=== PATIENT | male | born 1965 | race Caucasian/White ===

== ENCOUNTER 2022-07-30 09:00 | Outpatient (CLI) | payer OTHER, SELFPAY | END 2022-07-30 09:01 | disposition home or self-care (01) | PROVIDERS: PCP Family Medicine; Visit Provider Family Medicine | DX: Z00.00 Encounter for general adult medical examination without abnormal findings (principal); E78.5 Hyperlipidemia, unspecified; Z12.5 Encounter for screening for malignant neoplasm of prostate | CPT/HCPCS: 80048; 80061; 84153 ==

== ENCOUNTER 2022-12-21 07:51 | Outpatient (CLI) | payer OTHER, SELFPAY ==
--- OUTSIDE RECORDS SUMMARY | 2022-12-21 07:55 | XMS_ITS | Continuity of Care Document ---
Author Name Unknown Organization Z [facility] Address [address] [place] [address] Phone Care Team Providers Care Splitter Hand Name Role Phone Unavailable Unavailable Unavailable Advance Directives Directive Yes / No Effective Date File Name No Information Encounters Encounter Description Practice Location Reason(s) For Visit Diagnoses Date Provider Providers Copied on Encounter Z [facility] [place], [address], [place], [address], [place] tel:[phone] [facility] No Information 0 2200 1 No Information Family History Family Member Type Diagnosis Age At Onset No Information Payers Payer name Insurance type Covered constitution party ID Authoriza tion(s) No Information Social History Type Description Quantity Date Captured Comments Sex Male Smoking Status No Information Chief Complaint And Reason For Visit No Information Reason For Referral Reason For Referral No Information History Of Present Illness Encounter Date Complaint History Of Prese nt Illness No Information Functional Status Date Functional Assessmen t No Information Instructions Date Instruction Additional Infor mation No Information Assessments Type Assessment Date No Information Patient Care Teams Name Effective Dates (start - stop) Status Members No Information
--- NOTE | 2022-12-21 08:00 | CRLHL7_ITS ---
For Patients: As a result of the Century Cures Act, medical imaging exams and procedure reports are released immediately into your electronic medical record. You may view this report before your referring provider. If you have questions, please contact your health care provider. Indication: RUQ pain x a couple of months, feels a bit better recently - worse when lifting weights Technique: Noncontrast CT abdomen and pelvis Please note that all CT scans at this facility use dose modulation, iterative reconstruction, and/or weight-based dosing when appropriate to reduce radiation dose to as low as reasonably achievable. Comparison: X-ray 07/19/2017 Findings: The lung bases are clear. No pleural effusion or infiltrate. No free intraperitoneal air. The noncontrast enhanced liver is normal. The gallbladder is partially distended. No biliary obstruction or calcified stones. The pancreas and spleen are normal. Normal adrenal glands and kidneys. Atherosclerotic changes in the aorta without aneurysm. No hiatal hernia. Hyperdense material incidentally noted within the stomach. The prostate is prominent with mass effect upon the inferior bladder wall. No bladder stone. Postop changes right hemicolectomy. No bowel obstruction. No free fluid. No intra-abdominal or intrapelvic adenopathy. A left inguinal hernia is present containing fat measuring 1.4 cm. Degenerative facet arthropathy noted within the lower lumbar spine. Degenerative disc disease L5-S1. No suspicious osseous lesion. No fracture. Hypertrophic changes at the symphysis pubis. Mild leftward curvature lumbar spine. Impression: Postop changes of right hemicolectomy. No bowel obstruction or inflammatory change. No adenopathy. Enlargement of the prostate superiorly with mass effect upon the bladder. No bladder stones or hydronephrosis. 1.4 cm left inguinal hernia containing fat. Please note that all CT scans at this facility use dose modulation, iterative reconstruction, and/or weight-based dosing when appropriate to reduce radiation dose to as low as reasonably achievable. Dictated by Andrea Paul MD @ 12/21/2022 11:15:50 AM (Electronically Signed)
== END 2022-12-21 07:52 | disposition home or self-care (01) ==
LOC: CT 07:52
PROVIDERS: PCP Family Medicine; Visit Provider Surgery
DX: R10.11 Right upper quadrant pain (principal); N40.0 Benign prostatic hyperplasia without lower urinary tract symptoms; K40.90 Unilateral inguinal hernia, without obstruction or gangrene, not specified as recurrent
CPT/HCPCS: 74176

== ENCOUNTER 2023-10-28 14:00 | Outpatient (CLI) | payer OTHER, SELFPAY ==
--- OUTSIDE RECORDS SUMMARY | 2023-10-28 14:03 | XMS_ITS | Clinical Summary ---
Author Organization [facility] Address [address] [place] [address] Care Team Providers Care Welding Machine Operator Gas Metal Arc Name Role Phone Pcp, Pt Declines Primary Care Provider [phone] Source Comments You are receiving this document as you are listed as the primary care provider,follow-up provider, or the patient has been referred to you for consultation.This is in compliance with the Medicare and[facility] EHR Incentive Program,which states Providers who transition their patient to another setting of careor provider of care or refers their patient to another provider of care shouldprovide summary care record for each transition of care or referral. [facility] Allergies No known active allergies Medications No known medications Social History Tobacco Use Types Packs/Day Years Used Date Smoking Tobacco: Never Assessed Sex and Gender Information Value Date Recorded Sex Assigned at Not on file Gender Identity Not on file Sexual Orientation Not on file Plan of Treatment Health Maintenance Due Date Last Done Comments Colon Cancer Screening Plan Due 1966 Hep C Screening (Preventive Services) 1966 PSA Screening Discussion 1966 HIV Screening (Preventive Services) 1982 Adult Preventive Visit 1984 DTaP/Tdap/Td (1 - Tdap) 1985 HepB (1) 1985 Cholesterol 2001 Zoster/Shingles (1 of 2) 2016 COVID-19 Vaccine ( - 2022-2 4 season) 2023 Influenza (Season Ended) 2024 HepA Aged Out No longer eligi ble based on patient's age to complete this topic Hib Aged Out No longer eligi ble based on patient's age to complete this topic IPV (Polio) Aged Out No longer eligi ble based on patient's age to complete this topic MCV4 Aged Out No longer eligi ble based on patient's age to complete this topic Pneumococcal Aged Out No longer eligi ble based on patient's age to complete this topic Care Teams Welding Machine Operator Gas Metal Arc Relationship Specialty Start Date End Date Pcp, Pt MD Cynthia [place], [place] [id number] PCP - General 09/30/20
--- OUTSIDE RECORDS SUMMARY | 2023-10-28 14:03 | XMS_ITS | Clinical Summary ---
Author Organization [facility] Address [place], [place] [address] Care Team Providers Care Professor Of Counseling Name Role Phone Jerardo Wagoner MD Primary Care Provider + Allergies No known active allergies Medications Medication Sig Dispensed Refills Start Date End Date Status MULTIVITAMIN ORAL 1 tab daily 0 0 03/29/[address] Walters Vital Reds and Vital Greens 0 04/26/2018 Active cholecalciferol (VITAMIN D3) 1,000 unit capsule Take 2 capsules by mouth once daily. 04/26/2018 Active krill oil 500 mg cap Take 1,000 mg by mouth. 0 04/26/2018 Active Active Problems Problem Noted Date Diagnosed Date H/O right hemicolectomy 04/26/2018 Overview: Right hemicolectomy for endoscopically unresectable polyp in May 2017. Family history of cerebrovascular accident (CVA) 04/26/2018 Overview: Father in his 60's, coronary bypass in 70's. EBCT scan age 50, score 0, 47th percentile Vitamin D deficiency 03/02/2013 Elevated cholesterol 03/02/2013 Immunizations Name Administration Dates Next Due Td (Age >=7 Years) 05/30/2004 Tdap 03/02/2013 Family History Medical History Relation Name Comments Other Brother 1 4 one has HTN Cancer Brother 2 Heart Disease Father 84 alive and h as CAD, caroid art Other Maternal Grandfather 80s mi Other Maternal Grandmother 90s oa Cancer Mother 83 HTN, lung ca ncer Other Paternal Grandfather 80s oa Other Paternal Grandmother 80s oa Other Sister Relation Name Status Comments Brother 1 Brother 2 Father Maternal Grandfather Maternal Grandmother Mother Paternal Grandfather Paternal Grandmother Sister Social History Tobacco Use Types Packs/Day Years Used Date Smoking Tobacco: Never Smokeless Tobacco: Never Tobacco Cessation:Counseling Given: Yes Alcohol Use Standard Drinks/Week Comments Yes 4 (1 standard drink = 0.6 oz pur e alcohol) PHQ-2 Answer Date Recorded PHQ-2 Score 0 06/13/2019 Social Connections Answer Date Recorded Frequency of Communication with Friends and Fami ly Not on file 05/30/2021 Financial Resource Strain Answer Date R ecorded Difficulty of Paying Living Expenses Not on file 05/30/2021 Difficulty of Paying Living Expenses Not on file 05/30/2021 Sex and Gender Information Value Date Recorded Sex Assigned at Not on file Gender Identity Not on file Sexual Orientation Not on file Obstetrics History Last Filed Vital Signs Vital Sign Reading Time Taken Comments Blood Pressure 121/76 03/04/2021 7:55 AM CDT Pulse 67 03/04/2021 7:55 AM CDT Temperature 37.1 ??C (98.7 ??F) 05/20/2016 10:[address] Respiratory Rate 16 07/11/2017 11:22 AM ASSOCIATE [facility]AN Oxygen Saturation 100% 03/04/2021 7:55 AM CDT Inhaled Oxygen Concentration - - Weight 82.7 kg (182 lb 6.4 oz) 03/04/2021 7:55 A M CDT Height 177 cm (5' 9.69) 06/13/2019 9:39 AM ASSOCIATE DEAN Body Mass Index 26.41 06/13/2019 9:39 AM ASSOCIATE DEAN Plan of Treatment Health Maintenance Due Date Last Done Comments HIV for age 15-65 1981 Hepatitis C screening for age 18-79 1984 Zoster (shingles) series for age 50+ (1 of 2) 2016 BMI (ht and wt on same day) for age 18+ 06/13/2020 06/13/2019, 04/26/2018, 07/11/2017, Additional history exists Depression screening for age 12+ 06/13/2020 06/13/2019, 04/26/2018, 01/17/2017, Additional history exists Colonoscopy through age 75 02/02/2021 02/02/2018, COVID-19 vaccine series ( season) 2023 02/10/2021 Tetanus booster 03/02/2023 03/02/2013, 05/30/2004 Influenza for age 50-64 01/29/2024 02/28/20 16 (Completed outside of [facility]) Lipids for age 45-75 06/13/2024 06/13/2019, 04/26/2018, 09/15/2015, Additional history exists Tdap Completed 03/02/2013 Pneumococcal series for age 6-64 Aged Out No longer eligible based on patient's age to complete this topic Procedures Procedure Name Priority Date/Time Associated Diagnosis Comments LIPID PANEL W REFLEX MEASURED LDL Routine 06/13/2019 10:22 AM ASSOCIATE DEAN Preventative health care Elevated cholesterol SCAN-COLONOSCOPY 02/02/2018 12:0 0 AM CDT from Last 3 Months or Most Recently Relevant to Health Maintenance Results * LIPID PANEL W REFLEX MEASURED LDL (06/13/2019 10:22 AM ASSOCIATE [facility]AN) CHOLESTEROL,TOTAL 197 100 - 199 mg/dL 06/13/2019 1:34 PM [facility]OCIATE DEAN [facility] TRIGLYCERIDES 68 <150 mg/dL 06/13/2019 1:34 PM ASSOCIATE DEAN [facility] HDL CHOLESTEROL 60 >40 mg/dL 0 1:34 PM ASSOCIATE DEAN [facility] [employer] [facility] NON-HDL CHOLESTEROL 137 <145 mg/dl 06/13/2019 1:34 PM ASSOCIATE DEAN [facility] [employer] [facility] CHOL/HDL RATIO 3.28 <4.50 06/13/2019 1:34 PM ASSOCIATE DEAN [facility] LDL CHOLESTEROL 123 <=130 mg/dL 06/13/2019 1:34 PM ASSOCIATE DEAN [facility] [employer] [facility] PROVIDER ORDERED STATUS RANDOM 06/13/2019 1:34 PM ASSOCIATE DEAN [facility] Blood BLOOD SPECIMEN / Unknown Venipuncture / Unknown 06/13/2019 10:22 AM ASSOCIATE DEAN 06/13/2019 10:22 AM ASSOCIATE [facility]AN Jerardo Wagoner MD CHEMISTRY [facility] [address] [place] [address], * SCAN-COLONOSCOPY (02/02/2018 12:00 AM CDT) Scanner OTHER from Last 3 Months or Most Recently Relevant to Health Maintenance Care Teams Professor Of Counseling Relationship Specialty Start Date End Date Jerardo Wagoner MD [facility] [place], [place] [phone] PCP - General Internal Medicine 04/06/22
--- OUTSIDE RECORDS SUMMARY | 2023-10-28 14:03 | XMS_ITS | Continuity of Care Document ---
Author Organization Z [facility] [place] Address [address] [place] [address] Phone Care Team Providers Care Falafel Cart Cook Name Role Phone Unavailable Unavailable Unavailable Advance Directives Directive Yes / No Effective Date File Name No Information Encounters Encounter Description Practice Location Reason(s) For Visit Diagnoses Date Provider Providers Copied on Encounter Z [facility], [address], [place], [address], [place] tel:[phone] No Information 2200 1 No Information Family History Family Member Type Diagnosis Age At Onset No Information Payers Payer name Insurance type Covered alliance party ID Authoriza tion(s) No Information Social [...]
== END 2023-10-28 14:01 | disposition home or self-care (01) ==
PROVIDERS: PCP Family Medicine; Visit Provider Family Medicine
DX: E78.5 Hyperlipidemia, unspecified (principal); E55.9 Vitamin D deficiency, unspecified; Z12.5 Encounter for screening for malignant neoplasm of prostate
CPT/HCPCS: 80048; 80061; 83695; G0103

== ENCOUNTER 2025-03-06 08:12 | Outpatient (CLI) | payer OTHER, SELFPAY | END 2025-03-06 08:13 | disposition home or self-care (01) | PROVIDERS: PCP Family Medicine; Visit Provider Family Medicine | DX: Z12.5 Encounter for screening for malignant neoplasm of prostate (principal); Z13.9 Encounter for screening, unspecified; E78.2 Mixed hyperlipidemia | CPT/HCPCS: 80048; 80061; 82172; 83695; G0103 ==